=== PATIENT | female | born 1950 | race Caucasian/White ===

== ENCOUNTER 2022-05-12 02:04 | Inpatient (IN) ==
[2022-05-12] MEDS ORDERED: HYDROmorphone INJ 0.5 MG/0.5 ML SYR IV STA (02:30)
[2022-05-12] MEDS ORDERED: SODIUM CHLORIDE 0.9% 500 ML IV STA (02:30)
[2022-05-12] MEDS ORDERED: ONDANSETRON INJ 2 MG/ML 2 ML VIAL IV STA (02:30)
[2022-05-12] MEDS ORDERED: SODIUM CHLORIDE 0.9% 1000ML 1,000 ML IV STA (02:30)
[2022-05-12 02:32] LABS: iSTAT Creatinine 0.8 mg/dl (0.6-1.3); iSTAT Ionized Calcium 1.27 mmol/l (1.12-1.32); iSTAT Potassium 5.2 mmol/L (3.3-5.0)
[2022-05-12 02:50] LABS: Basophils # (auto) 0.14 K/uL (0-0.2); Basophils % (auto) 1.2 %; Eosinophils # (auto) 0.29 K/uL (0-0.50); Eosinophils % (auto) 2.4 %; Hematocrit (blood only) 41.3 % (37.0-47.0); Hemoglobin 13.6 g/dl (12.0-16.0); Immature Granulocytes # (auto) 0.06 K/uL (0.01-0.20); Immature Granulocytes % (auto) 0.5 %; Lymphocytes # (auto) 2.28 K/uL (1.2-3.4); Lymphocytes % (auto) 19.1 %; Mean Corpuscular Hemoglobin 30.8 pg (25.0-34.0); Mean Corpuscular Hgb Conc 32.9 g/dL (32.0-36.0); Mean Corpuscular Volume 93.7 fL (80.0-100.0); Mean Platelet Volume 11.3 fL (9.4-12.4); Monocytes # (auto) 1.64 K/uL (0.11-0.59); Monocytes % (auto) 13.8 %; Platelet Count 590 K/uL (130-400); RDW Coefficient of Variation 13.6 % (11.5-14.5); RDW Standard Deviation 46.6 fL (36.4-46.3); Red Blood Count 4.41 M/uL (4.20-5.40); White Blood Count 11.91 K/ul (4.8-10.8)
[2022-05-12 02:58] LABS: Albumin Globulin Ratio 0.6 (0.9-2); BUN Creatinine Ratio 90.9 (10-20); Creatinine Clr Calc Pharmacy 34.2 ml/min; Est GFR (African American) 76.6 ml/min; Est GFR (Non-African American) 66.1 ml/min; Globulin 6.4 gm/dl (2.5-4.0); Total Protein 10.4 gm/dl (6.0-8.3)
[2022-05-12 03:04] LABS: Troponin I High Sensitivity 18.9 pg/ml (0-14)
[2022-05-12] MEDS ORDERED: SODIUM CHLORIDE 0.9% 1000ML 500 ML IV ONE (03:11)
[2022-05-12 03:16] LABS: Appearance Urine Turbid (Clear); Bacteria Urine Automated 2+ (Negative); Bilirubin Urine Negative (Negative); Blood Urine 1+ (Negative); Color Urine Dark Yellow; Epithelial Cell Urine Auto 0-5 /lpf (0-5); Glucose Urine UA Negative (Negative); Ketones Urine Negative (Negative); Leukocyte Esterase Urine 3+ (Negative); Nitrite Urine Positive (Negative); Protein Urine 1+ (Negative); Specific Gravity Urine 1.019 (1.000-1.030); Urobilinogen Urine Negative (Negative); WBC Urine Automated >30 /hpf (0-5); pH Urine 5.5 (4.5-7.5)
--- NOTE | 2022-05-12 03:45 | Emergency Department Note ---
Impression & Plan COVID, Hyponatremia, Dehydration, Acute hypotension, Abdominal pain, chronic, bilateral lower quadrant ED Provider Note CHIEF COMPLAINT: Tachycardia, abdominal pain HISTORY OF PRESENT ILLNESS: This 71-year-old female patient with history of multiple abdominal surgeries, infected abdominal mesh is subsequently been removed, chronic lower abdominal pain and ileostomy presents to the emergency department from [facility] facility with complaints of pain. The patient does not answer questions readily, patient states she is in [place] currently. Per notes the patient from the rehab facility, she has chronic lower abdominal pain for which they have been treating her with pregabalin and attempting to wean her off of narcotics. Patient does have an indwelling Urbina catheter. She denies any vomiting. Nursing staff notes yellowish drainage on her sheets which they believe is from pressure ulcers. REVIEW OF SYSTEMS: A review of systems was performed with positives and pertinent negatives listed in the history of present illness. 10 systems were reviewed and are otherwise negative. ALLERGIES: see below MEDICATIONS: see below PMH: see below SOCIAL HISTORY: see below DDx: Dehydration, viral illness, UTI, pressure wounds, cellulitis, bowel obstruction, MRSA infection, C. difficile among others PHYSICAL EXAM: Vital signs reviewed. General: Chronically ill-appearing, cachectic 71-year-old female, in some discomfort. HEENT: No conjunctival injection or scleral icterus, PERRLA, neck supple. Dry mucous membranes. Cardiovascular: Tachycardic and regular, no extra sounds. Pulmonary: Clear to auscultation bilaterally, normal work of breathing. Abdomen: Soft, nontender, nondistended, positive bowel sounds. Musculoskeletal: Atraumatic, no peripheral edema. : Urbina catheter in place, excoriated perineum. Neurologic: Patient awake alert and confused. Skin: Warm, dry, pressure wounds noted to the occiput cervical thoracic region and sacrum EMERGENCY DEPARTMENT COURSE/MDM: This patient was evaluated and appeared to be chronically ill. Mucous membranes were very dry on exam. Patient was hydrated with 500 cc bolus of normal saline solution x2. She was placed on a maintenance rate of 125 MLS per hour. Patient was asking for pain medicine for her abdominal discomfort. She was given IV Dilaudid and Zofran. Upon extensive review of the patient's external medical records provided by [facility], patient suffers from recurrent and persistent lower abdominal pain. She does have history of multiple surgeries including removal of infected mesh, and ostomy and an anastomotic leak that has since healed. Patient was noted to be COVID-positi ve, hyponatremic and severely dehydrated. Her blood pressure did stabilize after some IV hydration. It also appears that the patient suffers from UTI, she was medicated with 1 g of IV ceftriaxone. Case was discussed with Dr. Garza of the hospitalist service to evaluate the patient for admission and further management. MONITORING: An order for cardiac monitoring was placed and the patient is noted to be in a sinus tachycardia at 131 beats per minute. RADIOLOGY: Chest x-ray to my review reveals no focal lung consolidation or failure, otherwise defer to radiology's overread. CT scan of the abdomen pelvis per radiology IMPRESSION: 1. There is a subtotal colectomy with a right lower quadrant ileostomy noted. No evidence for bowel obstruction. No obvious bowel mucosal asymmetry, accounting for limitations with respiratory artifact. No free intraperitoneal fluid or pneumoperitoneum. 2. There are postsurgical changes at the left inguinal region suggesting previous bypass. The bypass graft appears occluded, as do both [place] superficial femoral arteries. The clinical significance of this finding is indeterminate. Please correlate with clinical history and symptoms. Electronically signed by: Nolberto Saxena MD 05/12/22 04:53 AM Dictated:05/12/22452 Transcribed: 05/12/22452 EKG: EKG to my interpretation reveals a sinus tachycardia at 134 bpm. There is evidence of right atrial enlargement and nonspecific T wave abnormality. QTc is 430. No PVC, no PAC. No previous for comparison. DISPOSITION: Admission Past Med/Surg History Medical History Anastomotic leak of intestine Chronic abdominal pain ICH (intracerebral hemorrhage) Infected prosthetic mesh of abdominal wall PAD (peripheral artery disease) Poor appetite Social History Smoking Status: Former smoker Preferred Language: Irish Current Living Situation: Rehab Feels Safe at Home: Yes Allergies Allergies Allergy/AdvReac Type Severity Reaction Status Date / Time Penicillins Allergy Unknown ON MED LIST Verified 05/12/22 02:28 Home Meds Home Medications Medication Instructions Recorded Confirmed Saccharomyces boulardii 250 mg 250 mg PO DAILY 05/12/22 05/12/22 capsule acetaminophen 325 mg tablet 650 mg PO Q4H PRN Pain (Scale 05/12/22 05/12/22 (Tylenol) Score 1-3) albuterol sulfate 90 mcg/actuation 2 puff inhalation Q4H PRN Wheezing 05/12/22 05/12/22 aerosol inhaler atorvastatin 40 mg tablet 40 mg PO HS 05/12/22 05/12/22 bisacodyl 10 mg rectal suppository 10 mg SC DAILY PRN Constipation 05/12/22 05/12/22 cholestyramine (with sugar) 4 gram 2 g PO TID 05/12/22 05/12/22 oral powder dicyclomine 20 mg tablet 20 mg PO TID 05/12/22 05/12/22 diphenoxylate-atropine 2.5 1 tab PO QID 05/12/22 05/12/22 mg-0.025 mg tablet dronabinol 5 mg capsule (Marinol) 5 mg PO BID 05/12/22 05/12/22 duloxetine 30 mg capsule,delayed 30 mg PO HS 05/12/22 05/12/22 release enoxaparin 30 mg/0.3 mL 30 mg subcut DAILY 05/12/22 05/12/22 subcutaneous syringe (Lovenox) hydromorphone 2 mg tablet 2 mg PO Q6H PRN Pain (Scale Score 05/12/22 05/12/22 (Dilaudid) 7-10) loperamide 2 mg capsule 2 mg PO Q6H 05/12/22 05/12/22 magnesium hydroxide 400 mg/5 mL 30 ml PO DAILY PRN Constipation 05/12/22 05/12/22 oral suspension (Milk of Magnesia) methocarbamol 500 mg tablet 1,000 mg PO QDD 05/12/22 05/12/22 ondansetron HCl 4 mg tablet 4 mg PO Q4H PRN NAUSEA/VOMITING 05/12/22 05/12/22 pantoprazole 40 mg tablet,delayed 40 mg PO DAILYBB 05/12/22 05/12/22 release polyethylene glycol 3350 17 17 g PO QDL PRN Constipation 05/12/22 05/12/22 gram/dose oral powder (Miralax) sodium phosphates 19 gram-7 118 ml SC DAILY PRN Constipation 05/12/22 05/12/22 gram/118 mL enema (Fleet Enema) Results & Data (ED) Vital Signs Vital Signs - 24 hr 05/12/22 02:10 05/12/22 02:05 05/12/22 02:35 Temperature 37 C Temperature Source Oral Pulse Rate 131 H 132 H Pulse Rate [Apical] Pulse Rate from SpO2 Sensor Respiratory Rate 18 Blood Pressure 115/76 Blood Pressure [Right Arm] Blood Pressure Mean 89 Blood Pressure Mean [Right Arm] Pulse Oximetry 94 96 Oxygen Delivery Method Room Air Room Air Sepsis Recent Fever Within 48 Hours No Sepsis New/Unexplained Change in Mental Status No Sepsis Action Taken by Nursing No Action Required 05/12/22 03:15 05/12/22 02:10 05/12/22 02:10 Temperature Temperature Source Pulse Rate 131 H Pulse Rate [Apical] 114 H Pulse Rate from SpO2 Sensor Respiratory Rate 22 20 Blood Pressure 115/76 Blood Pressure [Right Arm] 101/66 Blood Pressure Mean 89 Blood Pressure Mean [Right Arm] 77 Pulse Oximetry 93 Oxygen Delivery Method Room Air Sepsis Recent Fever Within 48 Hours Sepsis New/Unexplained Change in Mental Status Sepsis Action Taken by Nursing 05/12/22 02:30 05/12/22 02:43 05/12/22 02:43 Temperature Temperature Source Pulse Rate 115 H 111 H Pulse Rate [Apical] Pulse Rate from SpO2 Sensor 113 H 111 H Respiratory Rate 17 18 Blood Pressure 108/74 Blood Pressure [Right Arm] Blood Pressure Mean 85 Blood Pressure Mean [Right Arm] Pulse Oximetry 97 98 Oxygen Delivery Method Sepsis Recent Fever Within 48 Hours Sepsis New/Unexplained Change in Mental Status Sepsis Action Taken by Nursing 05/12/22 02:45 05/12/22 02:45 05/12/22 03:00 Temperature Temperature Source Pulse Rate 106 H Pulse Rate [Apical] Pulse Rate from SpO2 Sensor 109 H Respiratory Rate 16 Blood Pressure 114/69 98/68 L Blood Pressure [Right Arm] Blood Pressure Mean 84 78 Blood Pressure Mean [Right Arm] Pulse Oximetry 92 Oxygen Delivery Method Sepsis Recent Fever Within 48 Hours Sepsis New/Unexplained Change in Mental Status Sepsis Action Taken by Nursing 05/12/22 03:00 05/12/22 03:15 05/12/22 03:15 Temperature Temperature Source Pulse Rate 107 H 108 H Pulse Rate [Apical] Pulse Rate from SpO2 Sensor 107 H 107 H Respiratory Rate 20 14 Blood Pressure 101/66 Blood Pressure [Right Arm] Blood Pressure Mean 77 Blood Pressure Mean [Right Arm] Pulse Oximetry 93 95 Oxygen Delivery Method Sepsis Recent Fever Within 48 Hours Sepsis New/Unexplained Change in Mental Status Sepsis Action Taken by Nursing 05/12/22 03:30 05/12/22 03:30 05/12/22 03:45 Temperature Temperature Source Pulse Rate 106 H 107 H Pulse Rate [Apical] Pulse Rate from SpO2 Sensor 107 H 107 H Respiratory Rate 17 17 Blood Pressure 103/55 L Blood Pressure [Right Arm] Blood Pressure Mean 71 Blood Pressure Mean [Right Arm] Pulse Oximetry 97 95 Oxygen Delivery Method Sepsis Recent Fever Within 48 Hours Sepsis New/Unexplained Change in Mental Status Sepsis Action Taken by Nursing 05/12/22 03:45 05/12/22 04:00 05/12/22 04:00 Temperature Temperature Source Pulse Rate 108 H Pulse Rate [Apical] Pulse Rate from SpO2 Sensor 108 H Respiratory Rate 20 Blood Pressure 95/58 L 94/52 L Blood Pressure [Right Arm] Blood Pressure Mean 70 66 Blood Pressure Mean [Right Arm] Pulse Oximetry 96 Oxygen Delivery Method Sepsis Recent Fever Within 48 Hours Sepsis New/Unexplained Change in Mental Status Sepsis Action Taken by Nursing 05/12/22 04:30 05/12/22 04:30 05/12/22 04:45 Temperature Temperature Source Pulse Rate 104 H Pulse Rate [Apical] Pulse Rate from SpO2 Sensor 101 H Respiratory Rate 20 Blood Pressure 92/53 L 107/92 Blood Pressure [Right Arm] Blood Pressure Mean 66 97 Blood Pressure Mean [Right Arm] Pulse Oximetry 98 Oxygen Delivery Method Sepsis Recent Fever Within 48 Hours Sepsis New/Unexplained Change in Mental Status Sepsis Action Taken by Nursing 05/12/22 04:45 05/12/22 05:00 05/12/22 05:00 Temperature Temperature Source Pulse Rate 98 H 102 H Pulse Rate [Apical] Pulse Rate from SpO2 Sensor 99 H 102 H Respiratory Rate 16 20 Blood Pressure 96/59 L Blood Pressure [Right Arm] Blood Pressure Mean 71 Blood Pressure Mean [Right Arm] Pulse Oximetry 81 L 98 Oxygen Delivery Method Sepsis Recent Fever Within 48 Hours Sepsis New/Unexplained Change in Mental Status Sepsis Action Taken by Nursing 05/12/22 05:15 05/12/22 05:15 05/12/22 05:30 Temperature Temperature Source Pulse Rate 97 H Pulse Rate [Apical] Pulse Rate from SpO2 Sensor 98 H Respiratory Rate 15 Blood Pressure 104/67 101/69 Blood Pressure [Right Arm] Blood Pressure Mean 79 79 Blood Pressure Mean [Right Arm] Pulse Oximetry 98 Oxygen Delivery Method Sepsis Recent Fever Within 48 Hours Sepsis New/Unexplained Change in Mental Status Sepsis Action Taken by Nursing 05/12/22 05:30 05/12/22 05:45 05/12/22 05:45 Temperature Temperature Source Pulse Rate 100 H 99 H Pulse Rate [Apical] Pulse Rate from SpO2 Sensor 100 H 100 H Respiratory Rate 21 19 Blood Pressure 99/63 L Blood Pressure [Right Arm] Blood Pressure Mean 75 Blood Pressure Mean [Right Arm] Pulse Oximetry 95 97 Oxygen Delivery Method Sepsis Recent Fever Within 48 Hours Sepsis New/Unexplained Change in Mental Status Sepsis Action Taken by Nursing 05/12/22 06:20 05/12/22 06:00 05/12/22 06:00 Temperature Temperature Source Pulse Rate 101 H 100 H Pulse Rate [Apical] Pulse Rate from SpO2 Sensor 100 H Respiratory Rate 15 Blood Pressure 102/71 Blood Pressure [Right Arm] Blood Pressure Mean 81 Blood Pressure Mean [Right Arm] Pulse Oximetry 99 Oxygen Delivery Method Sepsis Recent Fever Within 48 Hours Sepsis New/Unexplained Change in Mental Status Sepsis Action Taken by Nursing 05/12/22 06:15 05/12/22 06:15 05/12/22 06:30 Temperature Temperature Source Pulse Rate 100 H Pulse Rate [Apical] Pulse Rate from SpO2 Sensor 99 H Respiratory Rate 19 Blood Pressure 132/97 90/50 L Blood Pressure [Right Arm] Blood Pressure Mean 108 63 Blood Pressure Mean [Right Arm] Pulse Oximetry 100 Oxygen Delivery Method Sepsis Recent Fever Within 48 Hours Sepsis New/Unexplained Change in Mental Status Sepsis Action Taken by Nursing 05/12/22 06:30 05/12/22 06:45 05/12/22 06:45 Temperature Temperature Source Pulse Rate 105 H 101 H Pulse Rate [Apical] Pulse Rate from SpO2 Sensor 104 H 103 H Respiratory Rate 15 14 Blood Pressure 112/75 Blood Pressure [Right Arm] Blood Pressure Mean 87 Blood Pressure Mean [Right Arm] Pulse Oximetry 96 97 Oxygen Delivery Method Sepsis Recent Fever Within 48 Hours Sepsis New/Unexplained Change in Mental Status Sepsis Action Taken by Nursing 05/12/22 07:00 05/12/22 07:00 Temperature Temperature Source Pulse Rate 102 H Pulse Rate [Apical] Pulse Rate from SpO2 Sensor 102 H Respiratory Rate 16 Blood Pressure 92/78 L Blood Pressure [Right Arm] Blood Pressure Mean 82 Blood Pressure Mean [Right Arm] Pulse Oximetry 96 Oxygen Delivery Method Sepsis Recent Fever Within 48 Hours Sepsis New/Unexplained Change in Mental Status Sepsis Action Taken by Intermediate Medications Current Medication List: was personally reviewed by Laboratory Data Attestation: I reviewed the patient's lab results. 05/12/22 02:10 05/12/22 02:10 Lab Results 05/12/22 05/12/22 05/12/22 Range/Units 02:10 02:10 02:10 WBC 11.91 H (4.8-10.8) K/ul RBC 4.41 (4.20-5.40) M/uL Hgb 13.6 (12.0-16.0) g/dl POC Hgb (12.0-16.0) g/dl Hct 41.3 (37.0-47.0) % POC Hct (37-47) % MCV 93.7 (80.0-100.0) fL MCH 30.8 (25.0-34.0) pg MCHC 32.9 (32.0-36.0) g/dL RDW Std Deviation 46.6 H (36.4-46.3) fL RDW Coeff of [place] 13.6 (11.5-14.5) % Plt Count 590 H (130-400) K/uL MPV 11.3 (9.4-12.4) fL Immature Gran % (Auto) 0.5 % Neut % (Auto) 63.0 % Lymph % (Auto) 19.1 % [place] % (Auto) 13.8 % Eos % (Auto) 2.4 % Baso % (Auto) 1.2 % Neut # (Auto) 7.50 H (1.40-6.50) K/uL Lymph # (Auto) 2.28 (1.2-3.4) K/uL [place] # (Auto) 1.64 H (0.11-0.59) K/uL Eos # (Auto) 0.29 (0-0.50) K/uL Baso # (Auto) 0.14 (0-0.2) K/uL Immature Gran # (Auto) 0.06 (0.01-0.20) K/uL POC Sodium (135-144) mmol/L Sodium 127 L (136-145) mmol/L POC Potassium (3.3-5.0) mmol/L Potassium 5.0 (3.5-5.1) mmol/L POC Chloride (101-112) mmol/L Chloride 92 L (98-107) mmol/L Carbon Dioxide 25 (21-32) mmol/L POC Total CO2 (24-31) mmol/L Anion Gap 10 (3-11) POC Anion Gap (16-25) mmol/L POC BUN (7-18) mg/dl BUN 80 H (6-23) mg/dl Creatinine 0.88 (0.6-1.2) mg/dl POC Creatinine (0.6-1.3) mg/dl Est Cr Clr Drug Dosing 34.2 ml/min Est GFR ( Amer) 76.6 ml/min Est GFR (Non-Af Amer) 66.1 ml/min BUN/Creatinine Ratio 90.9 H (10-20) Glucose 126 H (70-99(Fasting)) mg/dl POC Glucose (other) (70-99) mg/dl Lactate 3.2 H* (0.4-2.0) mmol/L Calcium 11.0 H (8.5-10.1) mg/dl POC Ioniz Calcium Ce (1.12-1.32) mmol/l Total Bilirubin 1.0 (0.2-1.0) mg/dl AST 29 (13-39) U/L ALT 27 (7-52) U/L Alkaline Phosphatase 665 H (34-104) U/L Troponin I High Sens 18.9 H (0-14) pg/ml Total Protein 10.4 H (6.0-8.3) gm/dl Albumin 4.0 (3.4-5.0) gm/dl Globulin 6.4 H (2.5-4.0) gm/dl Albumin/Globulin Ratio 0.6 L (0.9-2) Lipase 22 (11-82) U/L Urine Color Urine Appearance (Clear) Urine pH (4.5-7.5) Ur Specific [place] (1.000-1.030) Urine Protein (Negative) Urine Glucose (UA) (Negative) Urine Ketones (Negative) Urine Blood (Negative) Urine Nitrite (Negative) Urine Bilirubin (Negative) Urine Urobilinogen (Negative) Ur Leukocyte Esterase (Negative) Urine WBC (Auto) (0-5) /hpf Urine RBC (Auto) (0-4) /hpf U Hyaline Cast (Auto) (0-5) /lpf U Epithel Cells (Auto) (0-5) /lpf Urine Bacteria (Auto) (Negative) SARS-CoV-2, RNA, NAAT (NEGATIVE) 05/12/22 05/12/22 05/12/22 Range/Units 02:18 03:05 03:05 WBC (4.8-10.8) K/ul RBC (4.20-5.40) M/uL Hgb (12.0-16.0) g/dl POC Hgb 16.0 (12.0-16.0) g/dl Hct (37.0-47.0) % POC Hct 47 (37-47) % MCV (80.0-100.0) fL MCH (25.0-34.0) pg MCHC (32.0-36.0) g/dL RDW Std Deviation (36.4-46.3) fL RDW Coeff of [place] (11.5-14.5) % Plt Count (130-400) K/uL MPV (9.4-12.4) fL Immature Gran % (Auto) % Neut % (Auto) % Lymph % (Auto) % [place] % (Auto) % Eos % (Auto) % Baso % (Auto) % Neut # (Auto) (1.40-6.50) K/uL Lymph # (Auto) (1.2-3.4) K/uL [place] # (Auto) (0.11-0.59) K/uL Eos # (Auto) (0-0.50) K/uL Baso # (Auto) (0-0.2) K/uL Immature Gran # (Auto) (0.01-0.20) K/uL POC Sodium 131 L (135-144) mmol/L Sodium (136-145) mmol/L POC Potassium 5.2 H (3.3-5.0) mmol/L Potassium (3.5-5.1) mmol/L POC Chloride 95 L (101-112) mmol/L Chloride (98-107) mmol/L Carbon Dioxide (21-32) mmol/L POC Total CO2 24 (24-31) mmol/L Anion Gap (3-11) POC Anion Gap 19.0 (16-25) mmol/L POC BUN 80 H (7-18) mg/dl BUN (6-23) mg/dl Creatinine (0.6-1.2) mg/dl POC Creatinine 0.8 (0.6-1.3) mg/dl Est Cr Clr Drug Dosing ml/min Est GFR ( Amer) ml/min Est GFR (Non-Af Amer) ml/min BUN/Creatinine Ratio (10-20) Glucose (70-99(Fasting)) mg/dl POC Glucose (other) 133 H (70-99) mg/dl Lactate (0.4-2.0) mmol/L Calcium (8.5-10.1) mg/dl POC Ioniz Calcium Ce 1.27 (1.12-1.32) mmol/l Total Bilirubin (0.2-1.0) mg/dl AST (13-39) U/L ALT (7-52) U/L Alkaline Phosphatase (34-104) U/L Troponin I High Sens (0-14) pg/ml Total Protein (6.0-8.3) gm/dl Albumin (3.4-5.0) gm/dl Globulin (2.5-4.0) gm/dl Albumin/Globulin Ratio (0.9-2) Lipase (11-82) U/L Urine Color Dark Yellow Urine Appearance Turbid A (Clear) Urine pH 5.5 (4.5-7.5) Ur Specific [place] 1.019 (1.000-1.030) Urine Protein 1+ H (Negative) Urine Glucose (UA) Negative (Negative) Urine Ketones Negative (Negative) Urine Blood 1+ H (Negative) Urine Nitrite Positive A (Negative) Urine Bilirubin Negative (Negative) Urine Urobilinogen Negative (Negative) Ur Leukocyte Esterase 3+ H (Negative) Urine WBC (Auto) >30 H (0-5) /hpf Urine RBC (Auto) 5-10 H (0-4) /hpf U Hyaline Cast (Auto) 1-5 (0-5) /lpf U Epithel Cells (Auto) 0-5 (0-5) /lpf Urine Bacteria (Auto) 2+ H (Negative) SARS-CoV-2, RNA, NAAT POSITIVE A* (NEGATIVE) 05/12/22 Range/Units 05:28 WBC (4.8-10.8) K/ul RBC (4.20-5.40) M/uL Hgb (12.0-16.0) g/dl POC Hgb (12.0-16.0) g/dl Hct (37.0-47.0) % POC Hct (37-47) % MCV (80.0-100.0) fL MCH (25.0-34.0) pg MCHC (32.0-36.0) g/dL RDW Std Deviation (36.4-46.3) fL RDW Coeff of [place] (11.5-14.5) % Plt Count (130-400) K/uL MPV (9.4-12.4) fL Immature Gran % (Auto) % Neut % (Auto) % Lymph % (Auto) % [place] % (Auto) % Eos % (Auto) % Baso % (Auto) % Neut # (Auto) (1.40-6.50) K/uL Lymph # (Auto) (1.2-3.4) K/uL [place] # (Auto) (0.11-0.59) K/uL Eos # (Auto) (0-0.50) K/uL Baso # (Auto) (0-0.2) K/uL Immature Gran # (Auto) (0.01-0.20) K/uL POC Sodium (135-144) mmol/L Sodium (136-145) mmol/L POC Potassium (3.3-5.0) mmol/L Potassium (3.5-5.1) mmol/L POC Chloride (101-112) mmol/L Chloride (98-107) mmol/L Carbon Dioxide (21-32) mmol/L POC Total CO2 (24-31) mmol/L Anion Gap (3-11) POC Anion Gap (16-25) mmol/L POC BUN (7-18) mg/dl BUN (6-23) mg/dl Creatinine (0.6-1.2) mg/dl POC Creatinine (0.6-1.3) mg/dl Est Cr Clr Drug Dosing ml/min Est GFR ( Amer) ml/min Est GFR (Non-Af Amer) ml/min BUN/Creatinine Ratio (10-20) Glucose (70-99(Fasting)) mg/dl POC Glucose (other) (70-99) mg/dl Lactate 1.1 (0.4-2.0) mmol/L Calcium (8.5-10.1) mg/dl POC Ioniz Calcium Ce (1.12-1.32) mmol/l Total Bilirubin (0.2-1.0) mg/dl AST (13-39) U/L ALT (7-52) U/L Alkaline Phosphatase (34-104) U/L Troponin I High Sens (0-14) pg/ml Total Protein (6.0-8.3) gm/dl Albumin (3.4-5.0) gm/dl Globulin (2.5-4.0) gm/dl Albumin/Globulin Ratio (0.9-2) Lipase (11-82) U/L Urine Color Urine Appearance (Clear) Urine pH (4.5-7.5) Ur Specific [place] (1.000-1.030) Urine Protein (Negative) Urine Glucose (UA) (Negative) Urine Ketones (Negative) Urine Blood (Negative) Urine Nitrite (Negative) Urine Bilirubin (Negative) Urine Urobilinogen (Negative) Ur Leukocyte Esterase (Negative) Urine WBC (Auto) (0-5) /hpf Urine RBC (Auto) (0-4) /hpf U Hyaline Cast (Auto) (0-5) /lpf U Epithel Cells (Auto) (0-5) /lpf Urine Bacteria (Auto) (Negative) SARS-CoV-2, RNA, NAAT (NEGATIVE) Administered Medications Discontinued Medications Hydromorphone HCl (Hydromorphone Inj 0.5 Mg/0.5 Ml Syr) 0.5 mg IV NOW STA Stop: 05/12/22 02:31 Last Admin: 05/12/22 02:44 Dose: 0.5 mg Documented By: AN Sodium Chloride (Nss) 500 mls @ 999 mls/hr IV .Q31M STA Stop: 05/12/22 03:00 Last Infusion: 05/12/22 03:09 Dose: 0 mls/hr Documented By: Admin: 05/12/22 02:37 Dose: 999 mls/hr Documented By: AN Sodium Chloride (Nss 1000ml) 1,000 mls @ 125 mls/hr IV .Q8H STA Stop: 05/12/22 10:29 Last Infusion: 05/12/22 05:35 Dose: 0 mls/hr Documented By: Admin: 05/12/22 02:44 Dose: 125 mls/hr Documented By: AN Sodium Chloride (Nss 1000ml) 500 mls @ 999 mls/hr IV .Q31M ONE Stop: 05/12/22 03:41 Last Infusion: 05/12/22 03:47 Dose: 0 mls/hr Documented By: Admin: 05/12/22 03:12 Dose: 999 mls/hr Documented By: ALTA Ceftriaxone Sodium 1,000 mg/ (Dextrose) 50 mls @ 100 mls/hr IV NOW STA Stop: 05/12/22 05:08 Last Admin: 05/12/22 05:39 Dose: 100 mls/hr Documented By: ALTA Ioversol (Optiray 350 100ml) 100 ml IV ONCE ONE Stop: 05/12/22 04:26 Last Admin: 05/12/22 04:25 Dose: 86 ml Documented By: ELIDIA Ondansetron HCl (Ondansetron Inj 2 Mg/Ml 2 Ml Vial) 4 mg IV NOW STA Stop: 05/12/22 02:31 Last Admin: 05/12/22 02:44 Dose: 4 mg Documented By: ALTA Imaging Data Radiologist's Impression: Abdomen/Pelvis CT 05/12/22 04:09 Exam(s): CT ABDOMEN + PELVIS With Contrast IV Amt: 86 ml optiray 350 EXAM: CT Abdomen and Pelvis With Intravenous Contrast CLINICAL HISTORY: abdominal pain. TECHNIQUE: Axial computed tomography images of the abdomen and pelvis with intravenous contrast. Automated exposure control was utilized for the study. A dose lowering technique was utilized adhering to the principles of ALARA. CONTRAST: Patient received 86 ml optiray 350 of IV contrast COMPARISON: No relevant prior studies available. FINDINGS: Limitations: There is respiratory artifact, which degrades image quality on multiple image slices. Lung bases: Unremarkable. No mass. No consolidation. ABDOMEN: Liver: There is an 11 mm cyst in the central aspect of the left lobe of the liver. Gallbladder and bile ducts: The gallbladder is at least moderately distended. No calcified gallstones. No definite evidence for gallbladder wall thickening. No biliary dilatation. Pancreas: The pancreas is grossly unremarkable. No ductal dilation. Spleen: Status post splenectomy. Adrenals: Unremarkable. No mass. Kidneys and ureters: Unremarkable. No solid mass. No hydronephrosis. Stomach and bowel: There is a subtotal colectomy with a right lower quadrant ileostomy noted. No evidence for bowel obstruction. No obvious bowel mucosal asymmetry, accounting for limitations with respiratory artifact. PELVIS: Appendix: See above. Bladder: A [place] catheter is noted in the bladder. Reproductive: Unremarkable as visualized. ABDOMEN and PELVIS: Intraperitoneal space: Unremarkable. No free air. No significant fluid collection. Bones/joints: No acute osseous abnormality with chronic loss of height at T12 level. No dislocation. Soft tissues: Postsurgical changes involving the ventral abdominal wall with some atrophy and widening of the superficial soft tissues at the midline. Presumed injection granulomas involving the left anterior pelvic subcutaneous fat. Vasculature: There are postsurgical changes at the left inguinal region suggesting previous bypass. The bypass graft appears occluded, as do both [place] superficial femoral arteries. The clinical significance of this finding is indeterminate. Atherosclerotic calcification of the aorta and the iliac arteries is noted. No aneurysm. Lymph nodes: Unremarkable. No enlarged lymph nodes. Other findings: The Flor pouch is grossly unremarkable. IMPRESSION: 1. There is a subtotal colectomy with a right lower quadrant ileostomy noted. No evidence for bowel obstruction. No obvious bowel mucosal asymmetry, accounting for limitations with respiratory artifact. No free intraperitoneal fluid or pneumoperitoneum. 2. There are postsurgical changes at the left inguinal region suggesting previous bypass. The bypass graft appears occluded, as do both [place] superficial femoral arteries. The clinical significance of this finding is indeterminate. Please correlate with clinical history and symptoms. Electronically signed by: Nolberto Saxena MD 05/12/22 04:53 AM Discharge Plan Visit Data Chief Complaint: Abdominal Pain Stated Complaint: R side Colostomy, Ileostomy, Infection, Wounds ED Provider: Cecy Medel Discharge Problem: COVID, Hyponatremia, Dehydration, Acute hypotension, Abdominal pain, chronic, bilateral lower quadrant Forms Stand Alone Forms: My [facility] [employer] Prescriptions Prescriptions: No Action atorvastatin 40 mg Tablet 40 mg PO HS methocarbamol 500 mg Tablet 1,000 mg PO QDD acetaminophen [Tylenol] 325 mg Tablet 650 mg PO Q4H PRN (Reason: Pain (Scale Score 1-3)) loperamide 2 mg Capsule 2 mg PO Q6H dronabinol [Marinol] 5 mg Capsule 5 mg PO BID Rx Instructions: administer before lunch and evening meal/dinner ondansetron HCl [Zofran] 4 mg Tablet 4 mg PO Q4H PRN (Reason: NAUSEA/VOMITING) diphenoxylate-atropine 2.5-0.025 mg Tablet 1 tab PO QID Rx Instructions: STOP 05/13/22 AT 1300 hydromorphone [Dilaudid] 2 mg Tablet 2 mg PO Q6H PRN (Reason: Pain (Scale Score 7-10)) magnesium hydroxide [Milk of Magnesia] 400 mg/5 mL Suspension 30 ml PO DAILY PRN (Reason: Constipation) dicyclomine [Bentyl] 20 mg Tablet 20 mg PO TID bisacodyl 10 mg Suppository 10 mg SC DAILY PRN (Reason: Constipation) pantoprazole 40 mg Tablet,Delayed Release (Dr/Ec) 40 mg PO DAILYBB Fleet Enema 19-7 gram/118 mL Enema 118 ml SC DAILY PRN (Reason: Constipation) polyethylene glycol 3350 [Miralax] 17 gram/dose Powder 17 g PO QDL PRN (Reason: Constipation) albuterol sulfate 90 mcg/actuation Hfa Aerosol Inhaler 2 puff INHALATION Q4H PRN (Reason: Wheezing) enoxaparin [Lovenox] 30 mg/0.3 mL Syringe 30 mg SUBCUT DAILY cholestyramine (with sugar) 4 gram Powder 2 g PO TID Rx Instructions: administer w/meal; avoid other meds within 1hr before or 4-6hr after dose Saccharomyces boulardii 250 mg Capsule 250 mg PO DAILY duloxetine 30 mg Capsule,Delayed Release(Dr/Ec) 30 mg PO Referrals Referrals: Tena Michaud [Primary Care Provider] -
[2022-05-12] MEDS ORDERED: OPTIRAY 350 100ml IV ONE (04:25)
[2022-05-12] MEDS ORDERED: cefTRIAXone SODIUM 1,000 MG in DEXTROSE 5% AD-VAN 50 ML IV STA (04:39)
--- NOTE | 2022-05-12 04:54 | CT Scan Report ---
Exam(s): CT ABDOMEN + PELVIS With Contrast IV Amt: 86 ml optiray 350 EXAM: CT Abdomen and Pelvis With Intravenous Contrast CLINICAL HISTORY: abdominal pain. TECHNIQUE: Axial computed tomography images of the abdomen and pelvis with intravenous contrast. Automated exposure control was utilized for the study. A dose lowering technique was utilized adhering to the principles of ALARA. CONTRAST: Patient received 86 ml optiray 350 of IV contrast COMPARISON: No relevant prior studies available. FINDINGS: Limitations: There is respiratory artifact, which degrades image quality on multiple image slices. Lung bases: Unremarkable. No mass. No consolidation. ABDOMEN: Liver: There is an 11 mm cyst in the central aspect of the left lobe of the liver. Gallbladder and bile ducts: The gallbladder is at least moderately distended. No calcified gallstones. No definite evidence for gallbladder wall thickening. No biliary dilatation. Pancreas: The pancreas is grossly unremarkable. No ductal dilation. Spleen: Status post splenectomy. Adrenals: Unremarkable. No mass. Kidneys and ureters: Unremarkable. No solid mass. No hydronephrosis. Stomach and bowel: There is a subtotal colectomy with a right lower quadrant ileostomy noted. No evidence for bowel obstruction. No obvious bowel mucosal asymmetry, accounting for limitations with respiratory artifact. PELVIS: Appendix: See above. Bladder: A Urbina catheter is noted in the bladder. Reproductive: Unremarkable as visualized. ABDOMEN and PELVIS: Intraperitoneal space: Unremarkable. No free air. No significant fluid collection. Bones/joints: No acute osseous abnormality with chronic loss of height at T12 level. No dislocation. Soft tissues: Postsurgical changes involving the ventral abdominal wall with some atrophy and widening of the superficial soft tissues at the midline. Presumed injection granulomas involving the left anterior pelvic subcutaneous fat. Vasculature: There are postsurgical changes at the left inguinal region suggesting previous bypass. The bypass graft appears occluded, as do both [place] superficial femoral arteries. The clinical significance of this finding is indeterminate. Atherosclerotic calcification of the aorta and the iliac arteries is noted. No aneurysm. Lymph nodes: Unremarkable. No enlarged lymph nodes. Other findings: The Flor pouch is grossly unremarkable. IMPRESSION: 1. There is a subtotal colectomy with a right lower quadrant ileostomy noted. No evidence for bowel obstruction. No obvious bowel mucosal asymmetry, accounting for limitations with respiratory artifact. No free intraperitoneal fluid or pneumoperitoneum. 2. There are postsurgical changes at the left inguinal region suggesting previous bypass. The bypass graft appears occluded, as do both [place] superficial femoral arteries. The clinical significance of this finding is indeterminate. Please correlate with clinical history and symptoms. Electronically signed by: Nolberto Saxena MD 05/12/22 04:53 AM
--- NOTE | 2022-05-12 05:18 | History & Physical Report ---
Date of Service May 12, 2022 Assessment & Plan (1) Urinary tract infection: Plan: -UA appears infected, pt has known history of VRE UTI -UCx, BCx pending -Ceftriaxone started in ER- switched to cefepime for broader coverage -Currently without sepsis, repeat lactate 3.2 to 1.1, mild WBC elevation at 12 -Trend CBC, BMP (2) Hyponatremia: Plan: -Na 127 on admission -Improved to Na 131 after NSS IVF -Likely due to poor oral intake -Continue NSS IVF -Trend BMP (3) Wound infection: Plan: -Multiple wounds with purulent drainage including tracheostomy site, ostomy site and pressure ulcers -Continue cefepime, also initiated daptomycin for SSTI -Obtain wound cultures -Wound care consult ordered (4) COVID: Plan: -COVID+ on admission -Stable respiratory status without hypoxia -No need for steroids or Remdesivir at this time (5) Anxiety: Plan: -Continue duloxetine (6) Malnutrition: Plan: -Continue NSS IVF at present -Regular diet -Continue Marinol -Consider nutritional consult- pt does apparently have TPN as outpatient (7) Amputation above knee: Plan: -Stable -Currently no concern for acute vascular disease (8) History of CVA (cerebrovascular accident): Plan: -Stable -Currently no concern for acute neurologic disease (9) Chronic abdominal pain: Plan: -Chronic abdominal pain due to history of multiple surgeries w/ current infected abdominal wound -CTAP does not indicate acute abdominal issues at present -Dilaudid, Tylenol PRN (10) Hyperlipidemia: Plan: -Continue statin (11) GERD (gastroesophageal reflux disease): Plan: -Continue pantoprazole Plan FENGI: Regular diet, NSS IVF Code status: Full. This should be clarified and addressed with pt's family members and pt herself once she is more able to engage with interview. DVT ppx: Enoxaparin Isolation: Contact, COVID Dispo: PCU History of Present Illness Chief Complaint: Abdominal pain Primary Care Provider: Tena Michaud 71 yo F with PMH HTN, HLD, CAD, anxiety, multiple abdominal surgeries after subtotal colectomy with ileostomy and chronic mesh infections, respiratory failure requiring tracheostomy, VRE UTI, MRSA pneumonia, L AKA presenting with abdominal pain. Pt does have complex PMH and history, though unclear, was obtained primarily from chart review of old records from [facility] rehab as pt unable to meaningfully engage in interview. Apparently pt has had subtotal colectomy in 2019 for [place] syndrome w/ perforation and has had chronic mesh infections since with multiple abdominal surgeries. During a hospitalization in 2021 for ileostomy reversal due to anastomotic leak she was critically ill and required multiple intubations and ultimately tracheostomy. She also has a history of L femoropopliteal bypass for which she was on Xarelto and this later resulted in intracerebral hemorrhage due to thrombosis at the bypass site. It seems the CVA and L above the knee amputation occurred during a hospital stay in 02/2022. She has been at [facility] rehab since and today presented due to worsening severe abdominal pain. Arrived to ER with tachycardia to 120s, BP 90s-100s/50s-60s. Initial labwork with WBC 12, Plts 590, Na 131, K 5.2, Cr 0.8, glucose 126, lactate 3.2, ALP 665, troponin 19, UA with LE, WBCs 30, bacteria, COVID+. EKG with sinus tachycardia, RA enlargement. CXR without acute process. CTAP without abscess or fluid collections, +occluded bypass graft at left inguinal region from previous vascular surgery. ER interventions- IVF boluses, Zofran, Dilaudid. Allergies Allergy/AdvReac Type Severity Reaction Status Date / Time Penicillins Allergy Unknown ON MED LIST Verified 05/12/22 02:28 Home Medications Medication Instructions Recorded Confirmed Type Saccharomyces boulardii 250 mg 250 mg PO DAILY 05/12/22 05/12/22 History capsule acetaminophen 325 mg tablet 650 mg PO Q4H PRN Pain (Scale 05/12/22 05/12/22 History (Tylenol) Score 1-3) albuterol sulfate 90 mcg/actuation 2 puff inhalation Q4H PRN Wheezing 05/12/22 05/12/22 History aerosol inhaler atorvastatin 40 mg tablet 40 mg PO HS 05/12/22 05/12/22 History bisacodyl 10 mg rectal suppository 10 mg MI DAILY PRN Constipation 05/12/22 05/12/22 History cholestyramine (with sugar) 4 gram 2 g PO TID 05/12/22 05/12/22 History oral powder dicyclomine 20 mg tablet 20 mg PO TID 05/12/22 05/12/22 History diphenoxylate-atropine 2.5 1 tab PO QID 05/12/22 05/12/22 History mg-0.025 mg tablet dronabinol 5 mg capsule (Marinol) 5 mg PO BID 05/12/22 05/12/22 History duloxetine 30 mg capsule,delayed 30 mg PO HS 05/12/22 05/12/22 History release enoxaparin 30 mg/0.3 mL 30 mg subcut DAILY 05/12/22 05/12/22 History subcutaneous syringe (Lovenox) hydromorphone 2 mg tablet 2 mg PO Q6H PRN Pain (Scale Score 05/12/22 05/12/22 History (Dilaudid) 7-10) loperamide 2 mg capsule 2 mg PO Q6H 05/12/22 05/12/22 History magnesium hydroxide 400 mg/5 mL 30 ml PO DAILY PRN Constipation 05/12/22 05/12/22 History oral suspension (Milk of Magnesia) methocarbamol 500 mg tablet 1,000 mg PO QDD 05/12/22 05/12/22 History ondansetron HCl 4 mg tablet 4 mg PO Q4H PRN NAUSEA/VOMITING 05/12/22 05/12/22 History pantoprazole 40 mg tablet,delayed 40 mg PO DAILYBB 05/12/22 05/12/22 History release polyethylene glycol 3350 17 17 g PO QDL PRN Constipation 05/12/22 05/12/22 History gram/dose oral powder (Miralax) sodium phosphates 19 gram-7 118 ml MI DAILY PRN Constipation 05/12/22 05/12/22 History gram/118 mL enema (Fleet Enema) Past Med/Surg History Medical History (Updated 05/12/22 @ 05:56 by Demetrio Beltran MD) Anastomotic leak of intestine Chronic abdominal pain ICH (intracerebral hemorrhage) Infected prosthetic mesh of abdominal wall PAD (peripheral artery disease) Poor appetite Social History (Updated 05/12/22 @ 04:26 by Cecy Medel MD) Smoking Status: Former smoker Preferred Language: Niuean Current Living Situation: Rehab Feels Safe at Home: Yes Review of Systems Review of Systems: Per HPI Physical Exam Physical Exam: General: uncomfortable appearing, cachectic, groaning HEENT: dry mucous membranes, PERRLA, responds to commands CV: Regular rhythm, tachycardia, normal S1 and S2 Resp: diminished but clear breath sounds b/l, no wheezes or crackles Abd: ostomy bag with moderate stool output w/o melena or hematochezia, open wound over ostomy site with purulent drainage, pt appears uncomfortable with mild palpation Neuro: AO status could not be assessed due to pt fatigue, responds to commands, responds to noxious stimuli Skin: open wounds with purulent drainage along midline abdomen, anterior neck over tracheostomy site. Sacral pressure ulcers noted Ext: L AKA, RLE without peripheral edema, faint pedal pulse Results & Data Results & Data ([facility]) Vital Signs (Past 12 Hours) Vital Signs Temp Pulse Pulse Resp BP BP Pulse Ox 05/12/22 03:15 114 H 22 101/66 93 05/12/22 02:35 96 05/12/22 02:05 37 C 132 H 18 115/76 94 05/12/22 02:10 131 H O2 Del Method 05/12/22 03:15 Room Air 05/12/22 02:35 Room Air 05/12/22 02:05 Room Air 05/12/22 02:10 Resident Activity Tracking Resident Involvement: Resident Care Provided Care Provided: Adult Hospital Medicine
--- NOTE | 2022-05-12 07:24 | XRay Report ---
SINGLE VIEW CHEST CLINICAL HISTORY: Tachycardia. FINDINGS: An AP, portable, semierect chest radiograph is obtained. No prior studies are available for comparison at the time of dictation. The examination is degraded by portable technique and patient r otation. The cardiomediastinal silhouette is unremarkable noting atherosclerotic calcification of the thoracic aorta. Emphysematous change is suspected. Interstitial thickening is likely chronic. There is bibasilar scarring/atelectasis. No airspace consolidation or large pleural effusion is identified. No pneumothorax is seen. The skeletal structures are osteopenic. The bony thorax is grossly intact. Degenerative change is noted in the shoulders. IMPRESSION: No acute cardiopulmonary abnormality. ACT 112: Negative or not required by law. Electronically signed by: Geoff Cabrera M.D. 05/12/2022 7:23 AM
[2022-05-12] MEDS ORDERED: PANTOprazole 40 MG TAB PO STA (08:04)
[2022-05-12] MEDS ORDERED: HYDROmorphone HCL 2 MG TAB PO PRN (08:04)
[2022-05-12] MEDS ORDERED: ALBUTEROL HFA 8 GM INHALER INH PRN (08:04)
[2022-05-12] MEDS ORDERED: ENOXAPARIN INJ 30 MG/0.3 ML SYR SQ ONE (08:04)
[2022-05-12] MEDS ORDERED: ACETAMINOPHEN 325 MG TAB PO PRN (08:04)
[2022-05-12] MEDS: DIPHENOXYLATE/ATROPINE 2.5/0.025MG TAB PO SCH ×5 (11:20→23:40)
[2022-05-12] MEDS: DICYCLOMINE HCL 20 MG TAB PO SCH ×3 (11:21→21:06)
[2022-05-12] MEDS: CHOLESTYRAMINE LIGHT 4 GM PKT PO SCH ×3 (13:16→20:09)
[2022-05-12] MEDS ORDERED: LACTATED RINGER'S 500 ML IV ONE (14:17)
--- NOTE | 2022-05-12 14:20 | Emergency Department Note ---
ED Visit Note The patient was awaiting transfer to [facility]. The nursing staff approached me with concerns for decreased Urbina output. Staff had already attempted to manipulate the Urbina without any improvement. An order was placed to replace the Urbina catheter. The patient was given a 500 cc lactated Ringer's bolus. .
[2022-05-12] MEDS ORDERED: METHOCARBAMOL 500 MG TABLET PO SCH (16:30)
[2022-05-12] MEDS ORDERED: SODIUM CHLORIDE 0.9% 1000ML 1,000 ML IV ONE (16:53)
[2022-05-12] MEDS ORDERED: CEFEPIME 2,000 MG/20 ML VIAL IV STA (16:53)
--- NOTE | 2022-05-12 17:18 | Emergency Department Note ---
ED Visit Note The patient's transfer to [facility] was still on hold. There was no bed available. I was asked by the nursing staff to see the patient as she had dropped her blood pressure. The patient looked quite dehydrated on exam. There was very minimal output from her Urbina catheter. She was ordered for a 1 L saline bolus. Repeat CBC, troponin and ECG were ordered. She was ordered for 2 g of IV cefepime. Repeat ECG per my review: There is a sinus rhythm with some PACs. There is no ST elevation, no PVCs. The rate is 95. The QTc is 485. I did speak with the hospitalist on-call, Dr. Jarrett. The patient will be admitted to our facility as we still have no bed available at [facility]. A call was placed to the ICU in case the patient would be best managed on their floor. Of note, the patient's blood pressure did begin to improve with the saline hydration. .
[2022-05-12] MEDS ORDERED: HYDROCORTISONE SOD SUCCINATE 100 MG/2 ML VIAL IV STA (17:54)
[2022-05-12] MEDS ORDERED: VANCOMYCIN CONSULT ACTIVE PRN ×2 (17:58→18:53)
--- NOTE | 2022-05-12 18:13 | Communication Note ---
Date of Service: May 12, 2022 Notified by ER provider at approximately 1700hrs that patient clinically declined, hypotensive and significantly volume depleted on clinical exam while pending transfer On bedside examination patient with less than 100 cc urine output in Urbina, BP at bedside 68/palp and tachycardic ~110 regular. Mucous membranes are cracked, dry. Lungs clear. Left AKA, scattered lower extremity wounds without focal erythema. Ostomy bag is in place with brown stool output. Patient reports that she aches all over, does have some mild abdominal tenderness which has not worsened on palpation. She is oriented to building and year, but is confused and tangential intermittently. EKG without acute ischemic findings. Patient given 1 L of normal saline and then transitioned to Normosol. 30 cc/kg is only 1000 cc due to low body weight/left amputation. LR discontinued 2/2 Rocephin use. Empiric dose of cefepime ordered by ER, patient previously received Rocephin. Dapto was discussed at time of patient presentation, but not given. Given severe illness patient was expanded with broad coverage including vancomycin and Flagyl. She is with a reported history of VRE, no cultures available, and multiple infected wounds. Suspected source of presenting infection is urine. BP after first 500 cc of liter bolus complete with improved pressure of 80/52, and then 92/58. Given hypotension and sepsis, and delay of transfer patient was discussed with ICU by ER provider for further care. Patient was given empiric 100 cc hydrocortisone, random cortisol is pending. Lactate pending.
[2022-05-12 18:14] LABS: Hemoglobin 10.4 g/dl (12.0-16.0); Mean Corpuscular Hemoglobin 31.1 pg (25.0-34.0); Mean Corpuscular Hgb Conc 32.5 g/dL (32.0-36.0); Mean Corpuscular Volume 95.8 fL (80.0-100.0); Platelet Count 458 K/uL (130-400); RDW Standard Deviation 49.6 fL (36.4-46.3); Red Blood Count 3.34 M/uL (4.20-5.40); White Blood Count 8.06 K/ul (4.8-10.8)
--- NOTE | 2022-05-12 19:15 | Pharmacy Report ---
Pharmacy Vanc AUC Short Note - Date of Service May 12, 2022 - Assessment & Plan Assessment 71 year old F receiving VANC/CEFEPIME/METRONIDAZOLE-IV for empiric treatment of urine source infection. Day # 1 of antimicrobial therapy. Pertinent PMH: Above knee amputation, Hx VRE UTI, multiple wounds, pressure ulcers. Plan Vancomycin * AUC/GREG is the preferred PK/PD target for vancomycin * AUC guided dosing is effective and associated with decreased risk of nephrotoxicity compared to traditional trough targets * Trough level of 15 mcg/mL is predicted to achieve target AUC/GREG of 400-600 mg/L.hr and may be associated with a 11-12% risk of nephrotoxicity * Vanc 1000mg (27mg/kg) IV x 1, then 750mg IV q18h. * Will obtain a Vanc random or trough prior to Css and follow up. Pharmacy will continue to follow and will adjust dose/frequency as necessary. Thank you.
--- NOTE | 2022-05-12 19:15 | Critical Care Consultation ---
Date of Consultation May 12, 2022 Assessment & Plan (1) Severe sepsis: (2) Acute hypotension: (3) COVID: (4) Dehydration: Plan Patient with evidence of hypovolemia and severe sepsis. She had worsening abdominal pain and a repeat CT abdomen/pelvis without contrast is pending. Repeat lactic acid. Patient has a very complex history of abdominal surgery and is certainly at risk for ileus or recurrence of [place] syndrome. We will need to consider placement of NG tube pending repeat CT abdomen findings. Initial CT abdomen and pelvis with contrast without evidence of acute findings. Continue with broad-spectrum antibiotics. Add Flagyl and vancomycin. Discontinue daptomycin. Patient also at risk for intra-abdominal sepsis. Additionally, she is being treated for complicated urinary tract infection. Repeat CBC and CMP. Given the patient's hypotension, will proceed with a stress dose of hydrocortisone. She was incidentally found to have COVID. She is currently saturating well on room air and does not have any signs or symptoms of COVID viral pneumonia. Patient has been accepted at [facility] and is pending transfer. We will monitor in the ICU setting while a bed becomes available. Patient history and plan of care discussed with multiple disciplines including ER physician, hospitalist service, and nocturnal ICU DARIUS. CRITICAL CARE TIME - I have personally spent 43 minutes of critical care time in the direct management of this patient. This is a life/limb threatening event. This includes time spent evaluating patient, direct bedside care, chart review, placing orders, interpretation of diagnostic studies, discussion with consultants, patient, and family members, as well as other required patient management activities. This time is exclusive of all separately billable procedures, and teaching time and separate from and in addition to any other critical care service time. History of Present Illness Reason for Consultation: Severe sepsis Attending Physician: Fred Valverde MD History of Present Illness 71-year-old female with a history of subtotal colectomy, ileostomy, chronic mesh infections, history of tracheostomy, VRE UTI, left AKA and chronic abdominal pain who presented to the hospital yesterday [facility] due to increasing abdominal pain. ICU was consulted today due to hypotension. Patient was excepted at [facility] for transfer and is pending bed. History is unreliable from the patient as she is delirious at times. She does endorse worsening abdominal pain in the right lower quadrant. She also endorses mild dizziness at times. She was found to have systolic blood pressures this late afternoon in the 70s and is currently receiving IV crystalloid therapy. She received a dose of daptomycin and cefepime. Labs are significant for thrombocytosis, anemia, hyperkalemia and mild lactic acidosis. Allergies Allergy/AdvReac Type Severity Reaction Status Date / Time Penicillins Allergy Unknown ON MED LIST Verified 05/12/22 02:28 Home Medications Medication Instructions Recorded Confirmed Type Saccharomyces boulardii 250 mg 250 mg PO DAILY 05/12/22 05/12/22 History capsule acetaminophen 325 mg tablet 650 mg PO Q4H PRN Pain (Scale 05/12/22 05/12/22 History (Tylenol) Score 1-3) albuterol sulfate 90 mcg/actuation 2 puff inhalation Q4H PRN Wheezing 05/12/22 0 05/12/22 History aerosol inhaler atorvastatin 40 mg tablet 40 mg PO HS 05/12/22 05/12/22 History bisacodyl 10 mg rectal suppository 10 mg IN DAILY PRN Constipation 05/12/22 05/12/22 History cholestyramine (with sugar) 4 gram 2 g PO TID 05/12/22 05/12/22 History oral powder dicyclomine 20 mg tablet 20 mg PO TID 05/12/22 05/12/22 History diphenoxylate-atropine 2.5 1 tab PO QID 05/12/22 05/12/22 History mg-0.025 mg tablet dronabinol 5 mg capsule (Marinol) 5 mg PO BID 05/12/22 05/12/22 History duloxetine 30 mg capsule,delayed 30 mg PO HS 05/12/22 05/12/22 History release enoxaparin 30 mg/0.3 mL 30 mg subcut DAILY 05/12/22 05/12/22 History subcutaneous syringe (Lovenox) hydromorphone 2 mg tablet 2 mg PO Q6H PRN Pain (Scale Score 05/12/22 05/12/22 History (Dilaudid) 7-10) loperamide 2 mg capsule 2 mg PO Q6H 05/12/22 05/12/22 History magnesium hydroxide 400 mg/5 mL 30 ml PO DAILY PRN Constipation 05/12/22 05/12/22 History oral suspension (Milk of Magnesia) methocarbamol 500 mg tablet 1,000 mg PO QDD 05/12/22 05/12/22 History ondansetron HCl 4 mg tablet 4 mg PO Q4H PRN NAUSEA/VOMITING 05/12/22 05/12/22 History pantoprazole 40 mg tablet,delayed 40 mg PO DAILYBB 05/12/22 05/12/22 History release polyethylene glycol 3350 17 17 g PO QDL PRN Constipation 05/12/22 05/12/22 History gram/dose oral powder (Miralax) sodium phosphates 19 gram-7 118 ml IN DAILY PRN Constipation 05/12/22 05/12/22 History gram/118 mL enema (Fleet Enema) Patient History Medical History (Updated 05/12/22 @ 19:09 by Kai Godinez MD) Anastomotic leak of intestine Chronic abdominal pain ICH (intracerebral hemorrhage) Infected prosthetic mesh of abdominal wall PAD (peripheral artery disease) Poor appetite Severe sepsis Social History Smoking Status: Former smoker Preferred Language: Mexican Current Living Situation: Rehab Feels Safe at Home: Yes Review of Systems Review of Systems: Unobtainable due to mental health condition Physical Exam Physical Exam: Constitutional: Cachectic appearing female mild distress. Lying in bed supine. Eyes: Pupils are equal round and reactive to light. Conjunctivae are normal. Anicteric sclera. Ears nose, mouth and throat: Mallampati class []. Normal posterior oropharynx. Uvula is midline. Neck: Trachea is midline. Visual inspection is normal. Respiratory: Clear to auscultation bilaterally. No use of accessory muscles. No significant clubbing noted. Cardiovascular: Regular rate and rhythm. No murmurs. No edema. Gastrointestinal: Moderate tenderness of the right lower quadrant. No rebound. No guarding. Ostomy bag intact. Prior wounds and granulation tissue noted. Musculoskeletal: Left AKA noted. Moves all extremities spontaneously. Skin: No rashes, warm dry and intact. Neurologic: No obvious focal neurological deficits seen. Psychiatric: Alert and oriented x1. Anxious affect. Results & Data Results & Data ([facility]) Vital Signs (Past 12 Hours) Vital Signs Temp Pulse Pulse Resp BP BP Pulse Ox 05/12/22 18:48 37.2 C 98 H 14 77/53 L 94 05/12/22 15:00 108 H 20 92/58 L 95 05/12/22 13:18 108 H 17 102/66 95 O2 Del Method 05/12/22 18:48 Room Air 05/12/22 15:00 Room Air 05/12/22 13:18 Room Air Coding Level of Care Code 30197 CRITICAL CARE 1ST 30-74M Diagnoses Severe sepsis A41.9; R65.20 Acute hypotension I95.9 COVID U07.1 Dehydration E86.0 Time Spent (min) 43
[2022-05-12] MEDS ORDERED: VANCOMYCIN HCL 1,000 MG in SODIUM CHLORIDE 0.9% 250 ML IV ONE (19:30)
[2022-05-12] MEDS ORDERED: NOREPINEPHRINE/D5W 4 MG/250 ML IV ONE (19:32)
[2022-05-12] MEDS ORDERED: STAT IV Infusion **Titration per Protocol STA (19:32)
[2022-05-12] MEDS ORDERED: NOREPINEPHRINE/D5W 4 MG/250 ML PLCT IV SCH (19:45)
[2022-05-12] MEDS: metroNIDAZOLE 500 MG/100 ML BAG IV SCH (19:47)
[2022-05-12] MEDS ORDERED: HYDROCORTISONE SOD 100 MG in SYRINGE 0 ML IV ONE (20:00)
--- NOTE | 2022-05-12 20:06 | CT Scan Report ---
Exam(s): CT ABDOMEN + PELVIS Without Contrast EXAM: CT Abdomen and Pelvis Without Intravenous Contrast CLINICAL HISTORY: Reason for exam: abdominal pain with increasing firmness. TECHNIQUE: Axial computed tomography images of the abdomen and pelvis without intravenous contrast. CTDI is 5.63 mGy and DLP is 262.22 mGy-cm. Automated exposure control was utilized for the study. A dose lowering technique was utilized adhering to the principles of ALARA. COMPARISON: 05/12/22 at 418 FINDINGS: Lung bases: Mild consolidative atelectasis in the lung bases. ABDOMEN: Liver: Small low-attenuation focus in the left lobe of the liver. Gallbladder and bile ducts: Hydropic gallbladder. No radiodense gallstones. Pancreas: Unremarkable. Spleen: Spleen is absent. Adrenals: Unremarkable. Kidneys and ureters: Residual contrast in the renal collecting systems and bladder. Probable right nephrolithiasis. Left renal scar. Stomach and bowel: Stomach is underdistended and poorly assessed. Previous bowel surgery with ostomy in the right side of the abdomen. Nonobstructive bowel gas pattern. PELVIS: Appendix: Appendix not identified. Bladder: Urbina catheter in the bladder. Reproductive: Fibroid uterus. ABDOMEN and PELVIS: Intraperitoneal space: Unremarkable. Bones/joints: No acute fracture. Soft tissues: Nodular foci in the abdominal wall and small foci of air, could be from injections. Correlate for any signs of decubitus ulcer in the distal coccygeal region. Vasculature: Atherosclerotic changes of a aorta and its branches. Left femoral stent grafts partially visualized. Lymph nodes: No bulky adenopathy. IMPRESSION: Hydropic gallbladder. No radiodense gallstones. Electronically signed by: Jeremiah Bethea M.D. 05/12/22 20:05 PM
--- NOTE | 2022-05-12 20:06 | Discharge Summary ---
Date of Service May 12, 2022 Admission HPI Per Admitting Provider 71 yo F with PMH HTN, HLD, CAD, anxiety, multiple abdominal surgeries after subtotal colectomy with ileostomy and chronic mesh infections, respiratory failure requiring tracheostomy, VRE UTI, MRSA pneumonia, L AKA presenting with abdominal pain. Pt does have complex PMH and history, though unclear, was obtained primarily from chart review of old records from [facility] rehab as pt unable to meaningfully engage in interview. 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 During a hospitalization in 2021 for ileostomy reversal due to anastomotic leak she was critically ill and required multiple intubations and ultimately tracheostomy. She also has a history of L femoropopliteal bypass for which she was on Xarelto and this later resulted in intracerebral hemorrhage due to thrombosis at the bypass site. It seems the CVA and L above the knee amputation occurred during a hospital stay in 02/2022. She has been at [facility] rehab since and today presented due to worsening severe abdominal pain. Arrived to ER with tachycardia to 120s, BP 90s-100s/50s-60s. Initial labwork with WBC 12, Plts 590, Na 131, K 5.2, Cr 0.8, glucose 126, lactate 3.2, ALP 665, troponin 19, UA with LE, WBCs 30, bacteria, COVID+. EKG with sinus tachycardia, RA enlargement. CXR without acute process. CTAP without abscess or fluid collections, +occluded bypass graft at left inguinal region from previous vascular surgery. ER interventions- IVF boluses, Zofran, Dilaudid. Principal Diagnosis Sepsis, suspected urologic source. DDx includes COVID without hypoxia Discharge Exam Thought process tangential occasionally circumferential. Intermittently oriented to year and place, intermittently encephalopathic/confused during discussion. Hypotensive, tachycardic. Heart rate is tachycardic, rhythm is regular. Lungs are clear to auscultation but diminished. Multiple pressure ulcers are present. Pupils equal, round, reactive to light. Vision and hearing grossly intact Moderate tenderness of right lower quadrant increased from prior exam. Left upper and left lower quadrant remains tender. Ostomy is intact draining brown material. Extremities: Left AKA present, moving all extremities spontaneously, scattered ulceration/skin wounds without demarcated erythema. Cap refill in right lower extremity sluggish approximately 2 seconds but improved from prior. Discharge Data Allergies Allergy/AdvReac Type Severity Reaction Status Date / Time Penicillins Allergy Unknown ON MED LIST Verified 05/12/22 02:28 Consultations 05/12/22 03:29 ED Decision to Admit Stat 05/12/22 19:15 Consult Car Worker Helper Routine Ordered Studies 05/12/22 04:09 CT Abd and Pelvis [CT abd pelvis IV con only] Stat 05/12/22 19:01 CT abd pelvis wo con Stat Hospital Course (1) Severe sepsis: Urosepsis Wandy was admitted for suspected UTI. She was COVID-positive, and UTI was infected appearing. She is pending a urine culture, and blood cultures were pending. Following ER assessment she was pending transfer to [facility] for elective transfer as that is where she had had several surgeries and subtotal colectomy. She was initially treated with fluids, and Rocephin and followed in the ER pending transfer. Over 3/6 patient clinically declined and in the afternoon became hypotensive. On reevaluation by hospitalist team patient was tachycardic, hypotensive, with dry mucous membranes and clinically worsening sepsis. She was treated with repeat 1.5 L crystalloid resuscitation, antibiotics were expanded from initial Rocephin to cefepime/vancomycin/Flagyl, and continued on Normosol. She was transferred to the ICU, had initial fluid responsive improvement in pressures to 90s systolic and then down trended to 70s. She was given empiric hydrocortisone for persistent hypotension, and transferred to the ICU for initiation of vasopressors. She did have some worsening of her baseline pain in the right quadrant suspicious for mesenteric ischemia, lactate and labs were drawn and CT was ordered. Case was reviewed with [facility] who were given an update based on change in status, and patient was accepted to transfer further ICU. CT was pending at time of transfer. Copied, patient transferred for further care Istory of Subtotal Colectomy with Ileostomy, chronic mesh infected - 2/2 Coeburn's Syndrome w/ perforation - primary anastomosis 07/2021 - Initial surgery 2019, w/ [facility] With resultant chronic abdominal pain With history of anastomotic leak, addressed by interventional radiology but with subsequent sepsis, intubation, ICU stay and critical illness myopathy requiring LTAC admission in 2021. Ischemic CVA, Left RETAIL AIDE infarct On DOAC/aspirin PHYSICIAN CHIEF OF PATHOLOGY Residual right-sided weakness LLE Ischemia 2/2 ischemia s/p failed femoropopliteral bypass and s/p L AKA Patient with chronic poor mobility, multiple pressure ulcers, diffuse scattered skin lesions (2) GERD (gastroesophageal reflux disease): (3) Hyperlipidemia: (4) History of partial colectomy: Total Time Total Time Spent Total Time Spent (In Minutes): Time spend day of discharge 95 minutes including direct patient care, documentation, review of labs and images, and coordination of care. Discharge Plan Discharge Items Patient Disposition: Transfer Acute Care Hospital Reason For Visit: TACHYCARDIA, UTI, SKIN WOUNDS, ABD PAIN Discharge Diagnosis: Sepsis, suspected bowel ischemia Activity: Per Instructions section Non-emergency contact: Specialist Call non-emergency contact if: your temperature is above 101.5 Follow-up/Referrals: Tena Michaud [Primary Care Provider] - Diet: Nothing by Mouth Addtl Attending Provider Instructions: Patient presented to [facility] with concerns for urosepsis. Over the course of 05/11 while pending elective transfer to [facility] where she has been seen previously and had multiple surgeries patient clinically deteriorated. On subsequent evaluation was with worsening sepsis and hypotension, and worsening abdominal pain suspicious for bowel ischemia. Patient was given aggressive fluid rehydration, antibiotics were expanded to cefepime/Flagyl/Vanco, CT of the abdomen was ordered, lactate was ordered, and patient was given hydrocortisone for refractory hypotension following fluids. Patient was admitted to ICU and Levophed was pending initiation. [facility] was updated on patient's clinical condition, level of status requiring ICU. Patient was accepted to their ICU for transfer, patient subsequently transferred for further care. Pending Studies at Discharge: No Stand-Alone Forms: My [facility] Skilled Items Patient informed of condition?: Yes DNR: No Discharge Level of Care: Other Communicable Disease: No Discharge Prognosis: Deteriorating Lines: Peripheral IV Urinary Catheter: Yes Medications and DC Order Prescriptions: Continued atorvastatin 40 mg Tablet 40 mg PO HS methocarbamol 500 mg Tablet 1,000 mg PO QDD acetaminophen [Tylenol] 325 mg Tablet 650 mg PO Q4H PRN (Reason: Pain (Scale Score 1-3)) loperamide 2 mg Capsule 2 mg PO Q6H dronabinol [Marinol] 5 mg Capsule 5 mg PO BID Rx Instructions: administer before lunch and evening meal/dinner ondansetron HCl [Zofran] 4 mg Tablet 4 mg PO Q4H PRN (Reason: NAUSEA/VOMITING) diphenoxylate-atropine 2.5-0.025 mg Tablet 1 tab PO QID Rx Instructions: STOP 05/13/22 AT 1300 hydromorphone [Dilaudid] 2 mg Tablet 2 mg PO Q6H PRN (Reason: Pain (Scale Score 7-10)) magnesium hydroxide [Milk of Magnesia] 400 mg/5 mL Suspension 30 ml PO DAILY PRN (Reason: Constipation) dicyclomine [Bentyl] 20 mg Tablet 20 mg PO TID bisacodyl 10 mg Suppository 10 mg FL DAILY PRN (Reason: Constipation) pantoprazole 40 mg Tablet,Delayed Release (Dr/Ec) 40 mg PO DAILYBB Fleet Enema 19-7 gram/118 mL Enema 118 ml FL DAILY PRN (Reason: Constipation) polyethylene glycol 3350 [Miralax] 17 gram/dose Powder 17 g PO QDL PRN (Reason: Constipation) albuterol sulfate 90 mcg/actuation Hfa Aerosol Inhaler 2 puff INHALATION Q4H PRN (Reason: Wheezing) enoxaparin [Lovenox] 30 mg/0.3 mL Syringe 30 mg SUBCUT DAILY cholestyramine (with sugar) 4 gram Powder 2 g PO TID Rx Instructions: administer w/meal; avoid other meds within 1hr before or 4-6hr after dose Saccharomyces boulardii 250 mg Capsule 250 mg PO DAILY duloxetine 30 mg Capsule,Delayed Release(Dr/Ec) 30 mg PO HS Discharge Orders: Discharge Order (Routine); Ordered 05/12/22 Ordered By: Quoc Roth Admission Data Admit Date/Time: 05/12/22 17:47 Attending Provider: Fred Valverde Admit Provider: Quoc Roth Primary Care Provider: Tena Michaud Other Providers: Fred Valverde ; Kai Godinez Coding Level of Care Code INP/OBS EV SAME DAY LV 3,85MIN Diagnoses Severe sepsis A41.9; R65.20 GERD (gastroesophageal reflux disease) K21.9 Hyperlipidemia E78.5 History of partial colectomy Z90.49
[2022-05-12] MEDS ORDERED: NORMOSOL-R 500 ML IV ONE (20:13)
[2022-05-12] MEDS ORDERED: PNEUMOCOCCAL POLYSACCHARIDES 25 MCG/0.5 ML VIAL/SYR IM ONE (20:16)
[2022-05-12 20:32] LABS: Basophils # (auto) 0.04 K/uL (0-0.2); Basophils % (auto) 0.6 %; Eosinophils # (auto) 0.04 K/uL (0-0.50); Eosinophils % (auto) 0.6 %; Hematocrit (blood only) 31.5 % (37.0-47.0); Immature Granulocytes # (auto) 0.03 K/uL (0.01-0.20); Immature Granulocytes % (auto) 0.4 %; Lymphocytes # (auto) 1.12 K/uL (1.2-3.4); Lymphocytes % (auto) 15.7 %; Mean Corpuscular Hgb Conc 31.7 g/dL (32.0-36.0); Mean Corpuscular Volume 97.5 fL (80.0-100.0); Mean Platelet Volume 11.2 fL (9.4-12.4); Monocytes # (auto) 1.22 K/uL (0.11-0.59); Monocytes % (auto) 17.1 %; Neutrophils # (auto) 4.69 K/uL (1.40-6.50); Neutrophils % (auto) 65.6 %; Platelet Count 474 K/uL (130-400); RDW Coefficient of Variation 13.9 % (11.5-14.5); RDW Standard Deviation 49.4 fL (36.4-46.3); Red Blood Count 3.23 M/uL (4.20-5.40); White Blood Count 7.14 K/ul (4.8-10.8)
[2022-05-12 20:37] LABS: BUN Creatinine Ratio 69.4 (10-20); Calcium 8.3 mg/dl (8.5-10.1); Creatinine Clr Calc Pharmacy 68.7 ml/min; Est GFR (African American) 113.6 ml/min; Magnesium 1.5 mg/dl (1.7-2.4); Phosphorus 3.7 mg/dl (2.5-4.9); Potassium 3.5 mmol/L (3.5-5.1)
[2022-05-12] MEDS: NORMOSOL-R 1,000 ML IV SCH (21:04)
[2022-05-12] MEDS: MAGNESIUM SULFATE / D5W 1 GM/100 ML BAG IV SCH ×2 (21:05→22:37)
--- NOTE | 2022-05-12 22:55 | Communication Note ---
Date of Service: May 12, 2022- 10:54 Patient accepted at [facility] with bed assigned. However, due to the weather, air transport is not able to be provided. Ground Transport is curr ently unavailable until morning with ACLS needs and vasopressor requirements. Patient CT scan of abdomen without change from previous. She is currently maintaining MAPS 65 > following volume resuscitation and low dose Levophed, and is making minimal urine- no worsening of organ dysfunction and lactate is 1.3. She was placed on Stress dose steroids as well- random cortisol 12. She is currently mentating well as well and mucous membranes are no longer dry and cracked. Abdomen exam without acute change. If vasopressor requirements increase will add arterial line and possibly central access if warranted. Supplemental critical care update note: No coding Aleks PORTILLO (ACNP-BC) Coding Level of Care Code None
[2022-05-13] MEDS ORDERED: HYDROCORTISONE SOD 50 MG in SYRINGE 0 ML IV SCH ×2 (02:00→04:00)
[2022-05-13] MEDS: metroNIDAZOLE 500 MG/100 ML BAG IV SCH (02:45)
[2022-05-13] MEDS: MAGNESIUM SULFATE / D5W 1 GM/100 ML BAG IV SCH ×2 (02:45→04:10)
[2022-05-13] MEDS: CHOLESTYRAMINE LIGHT 4 GM PKT PO SCH (02:46)
[2022-05-13] MEDS ORDERED: VANCOMYCIN HCL 750 MG in SODIUM CHLORIDE 0.9% 250 ML IV ONE (04:00)
[2022-05-13] MEDS ORDERED: CEFEPIME 2,000 MG in SYRINGE 0 ML IV SCH (04:00)
[2022-05-13 04:09] LABS: Basophils # (auto) 0.05 K/uL (0-0.2); Basophils % (auto) 0.6 %; Eosinophils # (auto) 0.16 K/uL (0-0.50); Eosinophils % (auto) 1.9 %; Hematocrit (blood only) 32.8 % (37.0-47.0); Hemoglobin 10.6 g/dl (12.0-16.0); Immature Granulocytes # (auto) 0.03 K/uL (0.01-0.20); Immature Granulocytes % (auto) 0.4 %; Lymphocytes # (auto) 1.16 K/uL (1.2-3.4); Lymphocytes % (auto) 13.7 %; Mean Corpuscular Hemoglobin 31.3 pg (25.0-34.0); Mean Corpuscular Hgb Conc 32.3 g/dL (32.0-36.0); Mean Corpuscular Volume 96.8 fL (80.0-100.0); Mean Platelet Volume 10.5 fL (9.4-12.4); Monocytes % (auto) 7.1 %; Neutrophils # (auto) 6.45 K/uL (1.40-6.50); Neutrophils % (auto) 76.3 %; Platelet Count 370 K/uL (130-400); RDW Coefficient of Variation 13.9 % (11.5-14.5); RDW Standard Deviation 49.6 fL (36.4-46.3); Red Blood Count 3.39 M/uL (4.20-5.40); White Blood Count 8.45 K/ul (4.8-10.8)
[2022-05-13 04:26] LABS: Albumin Globulin Ratio 0.7 (0.9-2); BUN Creatinine Ratio 56.8 (10-20); Bilirubin,Total 0.7 mg/dl (0.2-1.0); Calcium 8.5 mg/dl (8.5-10.1); Creatinine Clr Calc Pharmacy 76.5 ml/min; Est GFR (African American) 117.7 ml/min; Est GFR (Non-African American) 101.6 ml/min; Globulin 4.3 gm/dl (2.5-4.0); Potassium 2.9 mmol/L (3.5-5.1); Total Protein 7.3 gm/dl (6.0-8.3)
[2022-05-13] MEDS: POTASSIUM CHLORIDE / WTR 10 MEQ/100 ML PLCT IV SCH ×2 (05:02→08:14)
--- NOTE | 2022-05-13 05:19 | Electrocardiogram Report ---
Test Reason : Blood Pressure : / mmHG Vent. Rate : 134 BPM Atrial Rate : 134 BPM P-R Int : 124 ms QRS Dur : 068 ms QT Int : 288 ms P-R-T Axes : 068 049 083 degrees QTc Int : 430 ms Poor data quality, interpretation may be adversely affected Sinus tachycardia Right atrial enlargement Nonspecific T wave abnormality Abnormal ECG No previous ECGs available Confirmed by Sammy Bravo ([id number]) on 05/13/2022 5:19:32 AM Referred By: [facility] Confirmed By:Sammy Bravo
[2022-05-13 06:55] LABS: Magnesium 2.3 mg/dl (1.7-2.4)
[2022-05-13] MEDS: NORMOSOL-R 1,000 ML IV SCH (08:13)
[2022-05-13] MEDS ORDERED: ENOXAPARIN INJ 30 MG/0.3 ML SYR SQ SCH (09:00)
--- NOTE | 2022-05-13 12:21 | Electrocardiogram Report ---
Test Reason : Blood Pressure : / mmHG Vent. Rate : 095 BPM Atrial Rate : 095 BPM P-R Int : 144 ms QRS Dur : 072 ms QT Int : 384 ms P-R-T Axes : 071 060 070 degrees QTc Int : 482 ms Sinus rhythm with Premature atrial complexes Otherwise normal ECG When compared with ECG of 12-MAY-2022 02:10, Premature atrial complexes are now Present QRS voltage has decreased Nonspecific T wave abnormality no longer evident in Lateral leads Confirmed by Bernardo Russell ([id number]) on 05/13/2022 12:21:00 PM Referred By: [facility] Confirmed By:Bernardo Russell
== END 2022-05-13 08:28 | disposition short-term general hospital (02) | DRG 871 ==
LOC: ED 02:04 → 1E 17:47